=== PATIENT | male | born 1960 | race Caucasian/White ===

== ENCOUNTER 2018-04-30 00:23 | Emergency (ER) | payer MEDICAID ==
[2018-04-30] MEDS ORDERED: ASPIRIN 81 MG CHEWABLE TABLET PO ONE (00:25)
--- NOTE | 2018-04-30 00:34 | Emergency Department Record ---
History of Present Illness - General Chief Complaint: Chest Pain Stated Complaint: CHEST PAIN Time Seen by Provider: 04/30/18 00:25 Source: Patient Mode of Arrival: Ambulatory Limitations: No limitations - History of Present Illness Initial Comments: 57 yo male presents to ED for evaluation of chest discomfort that began earlier this evening. Patient describes the pain as an ache, radiates through to the back with a strength of 2-3/10. Patient reports [place] 5 days ago with stents x 2 placed, also reports recent diagnosis of atrial fibrillation. Patient denies fevers, chills, or cough symptoms. Patient does report that he was started on anticoagulation medications x 2 this week (Brlinta, Xarelto). MD Complaint: Chest pain Onset/Timin -: Hour(s) Onset: During rest Pain Location: Left chest Pain Radiation: Back Severity scale (1-10): 3 Quality: Aching Consistency: Constant Improves With: Nothing Worsens With: Nothing - Related Data Home Medications Medication Instructions Recorded Confirmed Last Taken Metoprolol Tartrate 25 mg PO BID 04/30/18 04/30/18 04/29/18 Rivaroxaban [Xarelto] 20 mg PO DAILY 04/30/18 04/30/18 04/29/18 Ticagrelor [Brilinta] 90 mg PO BID 04/30/18 04/30/18 04/29/18 Allergies Allergy/AdvReac Type Severity Reaction Status Date / Time Horse/Equine Containing Allergy HIVES Verified 08/11/14 19:16 Products metformin AdvReac COUGH Verified 04/30/18 00:27 Review of Systems Constitutional: Denies: Chills, Fever, Malaise, Night sweats Eyes: Denies: Eye discharge, Eye pain ENT: Denies: Congestion, Ear pain, Epistaxis Respiratory: Denies: Cough, Dyspnea Cardiovascular: Reports: Chest pain, Edema. Denies: Dyspnea on exertion Endocrine: Denies: Fatigue, Heat or cold intolerance Gastrointestinal: Denies: Abdominal pain, Nausea, Vomiting Genitourinary: Denies: Incontinence, Retention Musculoskeletal: Denies: Arthralgia, Back pain Skin: Denies: Bruising, Change in color Neurological: Denies: Abnormal gait, Confusion, Headache, Seizure Psychiatric: Denies: Anxiety Hematological/Lymphatic: Reports: Easy bleeding, Easy bruising. Denies: Anemia , Blood Clots Past Medical History - SOCIAL HISTORY Smoking Status: Never smoker - RESPIRATORY Hx Respiratory Disorders: No - CARDIOVASCULAR Hx Cardio Disorders: Yes Hx Hypertension: Yes - NEURO Hx Neuro Disorders: No - GI Hx GI Disorders: No - Hx Genitourinary Disorders: No - ENDOCRINE Hx Endocrine Disorders: Yes Hx Diabetes: Yes - MUSCULOSKELETAL Hx Musculoskeletal Disorders: No - PSYCH Hx Psych Problems: No - HEMATOLOGY/ONCOLOGY Hx Hematology/Oncology Disorders: No Family Medical History Hx Anxiety: Mother Hx Depression: Mother Hx Heart Disease: Father Hx HTN: Father, Mother Hx Stroke: Mother Physical Exam - General General Appearance: Alert, Oriented x3, Cooperative, Mild distress Limitations: No limitations - Head Head exam: Atraumatic, Normocephalic, Normal inspection Head exam detail: negative: Abrasion, Contusion, Reina's sign, General tenderness, Hematoma, Laceration - Eye Eye exam: Normal appearance. negative: Conjunctival injection, Periorbital swelling, Periorbital tenderness, Scleral icterus - ENT Ear exam: negative: Auricular hematoma, Auricular trauma Nasal Exam: negative: Active bleeding, Discharge, Dried blood, Foreign body Mouth exam: negative: Drooling, Laceration, Muffled voice, Tongue elevation - Neck Neck exam: Normal inspection. negative: Meningismus, Tenderness - Respiratory Respiratory exam: Normal lung sounds bilaterally. negative: Rales, Respiratory distress, Rhonchi, Stridor - Cardiovascular Cardiovascular Exam: Normal heart sounds, Irregular rhythm - GI/Abdominal GI/Abdominal exam: Soft. negative: Rebound, Rigid, Tenderness - Rectal Rectal exam: Deferred - exam: Deferred - Extremities Extremities exam: Normal inspection, Pedal edema (1+ bilaterally). negative: Calf tenderness, Tenderness - Back Back exam: Denies: CVA tenderness (R), CVA tenderness (L) - Neurological Neurological exam: Alert, Normal gait, Oriented X3 - Psychiatric Psychiatric exam: Normal affect, Normal mood - Skin Skin exam: Normal color. negative: Abrasion Type of lesion: negative: abrasion Course - Reevaluation(s) Reevaluation #1: 04/30/18 00:33 Atrial fibrillation 100 Normal axis, irregular R-R intervals T wave inversion III, no other acute ST-T wave changes. Reevaluation #2: 04/30/18 00:53 Bedside cardiac US performed: Overall good LV function No significant pericardial effusion present Reevaluation #3: 04/30/18 01:00 Laboratory studies were reviewed: Troponin 2.33 (previous 25.03 at [facility]) AST 68 ALT 45 Labs are otherwise grossly unremarkable for an acute process. Portable CXR: No acute process, no widened mediastinum Will initiate transfer to [facility] for further cardiac evaluation. Dr. Bain paged for consultation. 04/30/18 01:04 Case was discussed with Dr. Bain, recommends admission to the [facility]. Reevaluation #4: 04/30/18 01:28 Case was discussed with Dr. Norris, will accept transfer for further cardiac evaluation. Medical Decision Making - Lab Data Result diagrams: 04/30/18 00:30 04/30/18 00:30 Disposition Disposition: Transfer Clinical Impression: NSTEMI (non-ST elevation myocardial infarction) Chest pain Qualifiers: Chest pain type: unspecified Qualified Code(s): R07.9 - Chest pain, unspecified Disposition: Acute Care Hospital Transfer Transfer To: [facility] Reason For Transfer: NSTEMI Accepting Physician: Myrna/Odell Time Discussed w/Accepting Physician: 01:11 Condition: (2) Stable Forms: Patient Portal Access Time of Disposition: 01:11 Quality - Quality Measures Quality Measures: N/A - Blood Pressure Screening Does Patient Have Any of the Following: Active Dx of HTN Blood Pressure Classification: Hypertensive Reading Systolic Measurement: 159 Diastolic Measurement: 118 Screening for High Blood Pressure: Patient Exclusion, Hx of HTN [[id number]]
[2018-04-30 00:37] LABS: BASO % 0.2 % (0-6); EOS % 0.4 % (0-6); GRAN % 71.9 % (47-80); HEMATOCRIT 43.9 % (42.0-52.0); HEMOGLOBIN 14.7 gm/dl (14.0-18.0); LYMPH % 14.1 % (16-45); MEAN CELL VOLUME 95.6 fl (81-97); MEAN CORPUSCULAR HGB CONC 33.5 g/dl (32-36); MONO % 13.4 % (0-9); PLATELET COUNT 187 K/uL (130-400); RED BLOOD COUNT 4.59 M/uL (4.40-5.70); RED CELL DISTRIBUTION WIDTH 13.1 % (11.5-14.5); WHITE BLOOD COUNT W/O DIFF 9.9 K/uL (4.2-12.2)
[2018-04-30 00:46] LABS: BLOOD UREA NITROGEN 16 mg/dL (6-20); CREATININE 0.8 mg/dL (0.7-1.2); EST GLOMERULAR FILTRATION RATE > 60 mL/min
[2018-04-30 00:47] LABS: TOTAL PROTEIN 7.2 g/dL (6.6-8.7)
[2018-04-30 00:49] LABS: GLUCOSE,RANDOM 128 mg/dL (74-109)
[2018-04-30 00:51] LABS: ALB/GLOB RATIO 1.1 (1.1-1.8); ALBUMIN 3.7 g/dL (4.0-5.0); ALT/SGPT 45 U/L (<41); AST/SGOT 68 U/L (10.0-50.0)
[2018-04-30 00:52] LABS: ALKALINE PHOSPHATASE 72 U/L (40-129)
--- NOTE | 2018-05-02 15:06 | RADIOLOGY REPORT ---
EXAM: PORTABLE CHEST HISTORY: LEFT SIDED CHEST PAIN. CORONARY ARTERY STENTS PLACED APPROXIMATELY FOUR DAYS AGO. TECHNIQUE: A single mobile upright view of the chest was obtained. Comparison: Left ribs with PA chest dated 08/11/14. FINDINGS: The heart projects at the upper limits of normal in size. No pulmonary venous hypertension is seen. No lung consolidation is identified. The right hemidiaphragm margin appears slightly ill defined suggesting minor atelectasis or less likely infiltrate. A calcified granuloma in the lateral right lung base seen on the prior examination is not as well visualized due to superimposition of the hemidiaphragm. It is probably unchanged. IMPRESSION: 1. PROBABLE MINIMAL ATELECTASIS IN THE RIGHT BASE CAUSING SLIGHT ILL DEFINITIVE OF THE RIGHT HEMIDIAPHRAGM MARGIN. 2. CALCIFIED GRANULOMA REDEMONSTRATED IN THE LATERAL RIGHT HEMITHORAX SPACE. JOB NUMBER: [id number] MTDD
== END 2018-04-30 02:22 | disposition short-term general hospital (02) ==
LOC: ER 00:23
DX: I21.4 Non-ST elevation (NSTEMI) myocardial infarction (principal); I10 Essential (primary) hypertension; E11.9 Type 2 diabetes mellitus without complications; Z79.01 Long term (current) use of anticoagulants
CPT/HCPCS: 71045; 80053; 84484; 85025; 93005; 93010; 99285